=== PATIENT | male | born 1965 | race African-American/Black ===

== ENCOUNTER 2025-01-30 21:26 | Emergency (ER) | payer MEDICAID ==
[~2025-01-30] VITALS: Ht 152.4 cm; Wt 75.0 kg
[2025-01-30 21:41] VITALS: BP 143/82; PULSE 69; RESP 20; TEMP 97.8; O2SAT 99
[2025-01-31] MEDS ORDERED: IBUP-1455 MT (00:13)
[2025-01-31] MEDS ORDERED: IBUPROFEN 600MG TABLET PO ONE (00:45)
== END 2025-01-31 00:43 | disposition home or self-care (01) ==
LOC: ER 21:26
DX: S02.2XXA Fracture of nasal bones, initial encounter for closed fracture (principal); S02.839A Fracture of medial orbital wall, unspecified side, initial encounter for closed fracture; S00.03XA Contusion of scalp, initial encounter; I10 Essential (primary) hypertension; X58.XXXA Exposure to other specified factors, initial encounter; Y93.89 Activity, other specified; Y92.89 Other specified places as the place of occurrence of the external cause; Y99.8 Other external cause status
CPT/HCPCS: 70486; 73140; 99284